=== PATIENT | male | born 1945 | race Caucasian/White ===

== ENCOUNTER 2019-12-05 21:46 | Emergency (ER) | payer OTHER ==
[~2019-12-05] VITALS: Ht 175.3 cm; Wt 88.5 kg
[2019-12-05] MEDS ORDERED: VENLAFAXINE H37.5 M2 PO (22:06)
[2019-12-05] MEDS ORDERED: TOPROL XL25 MG PO (22:06)
[2019-12-05] MEDS ORDERED: COUMADIN1 MG PO (22:07)
== END 2019-12-06 02:42 | disposition home or self-care (01) ==
LOC: ER 21:46
DX: S00.03XA Contusion of scalp, initial encounter (principal); W18.09XA Striking against other object with subsequent fall, initial encounter; Z95.0 Presence of cardiac pacemaker; Y93.68 Activity, volleyball (beach) (court); Y92.39 Other specified sports and athletic area as the place of occurrence of the external cause; Y99.8 Other external cause status